=== PATIENT | male | born 1955 | race Caucasian/White ===

== ENCOUNTER 2020-07-29 05:55 | Day surgery (SDC) | payer BC, OTHER ==
[2020-07-27 12:33] VITALS: BMI 26.0
[2020-07-29] MEDS ORDERED: Heparin 10,000 UNITS/ 10 ML VIAL ONE (07:16)
[2020-07-29] MEDS ORDERED: Midazolam HCl 2 mg/2 ml Vial ONE (08:13)
[2020-07-29] MEDS ORDERED: Fentanyl 100 MCG/2 ML VIAL ONE (08:13)
[2020-07-29] MEDS ORDERED: Protamine Sulfate 50 MG/5 ML VIAL ONE (08:32)
[2020-07-29] MEDS ORDERED: Iopamidol 370 76% 50 ML VIAL FS ONE (11:16)
[2020-07-29] MEDS ORDERED: Iopamidol 370 76% 100 ML VIAL ONE (11:16)
== END 2020-07-29 15:45 | disposition home or self-care (01) ==
LOC: CCL 05:55
PROVIDERS: ATTEND Internal Medicine Cardiovascular Disease
PROC: B2111ZZ Fluoroscopy of Multiple Coronary Arteries using Low Osmolar Contrast (ICD-10-PCS; principal; 2020-07-29)
PROC: 4A023N7 Measurement of Cardiac Sampling and Pressure, Left Heart, Percutaneous Approach (ICD-10-PCS; principal; 2020-07-29)
DX: I25.10 Atherosclerotic heart disease of native coronary artery without angina pectoris (principal); Z79.82 Long term (current) use of aspirin; Z79.899 Other long term (current) drug therapy
CPT/HCPCS: 85347; 93458; 99152; 99153; J1644; J2250; J2720; J3010; Q9967

== ENCOUNTER 2022-12-03 10:21 | Outpatient (CLI) | payer MEDICARE, BC ==
[2022-12-03 12:51] LABS: #Basophils 0.1 10x3/uL (0.0-0.2); #Monocytes 0.4 10x3/uL (0.0-1.1); #Neutrophils 2.7 10x3/uL (1.5-8.4); %Basophils 1.2 % (0.0-2.0); %Eosinophils 0.8 % (0.0-6.0); %Lymphocytes 33.1 % (18.0-47.0); %Monocytes 8.9 % (0.0-10.0); Hemoglobin 14.8 g/dL (13.5-17.5); Mean Corpuscular HGB CONC 33.7 g/dL (32.0-36.0); Mean Corpuscular Hemoglobin 30.8 pg (27.0-33.0); Mean Corpuscular Volume 91.5 fl (81.2-95.1); Platelet Count 220 10x3/uL (150-450); RBC Distribution Width 12.9 % (11.5-14.5); White Blood Cell (WBC) Count 4.8 10x3/uL (3.5-10.5)
[2022-12-03 13:11] LABS: Anion Gap 14 mmol/L (10-20); BUN (Urea Nitrogen) 14 mg/dL (8.4-25.7); Calc. Creatinine Clearance 0 mL/min (70-130); Calcium 9.9 mg/dL (7.8-10.44); Carbon Dioxide 25 mmol/L (23-31); Chloride 106 mmol/L (98-107); Estimated GFR 98; Glucose 91 mg/dL (80-115); Potassium 5.4 mmol/L (3.5-5.1); Sodium 140 mmol/L (136-145)
[2022-12-03 13:23] LABS: INR-International Normal Ratio 0.9; Prothrombin Time 10.2 sec (9.5-12.1)
== END 2022-12-03 10:22 | disposition home or self-care (01) ==
LOC: LABBT 10:21
PROVIDERS: ATTEND Orthopaedic Surgery
DX: Z01.818 Encounter for other preprocedural examination (principal); M16.11 Unilateral primary osteoarthritis, right hip
CPT/HCPCS: 80048; 85025; 85610; 87081; 93005; 93010

== ENCOUNTER 2022-12-17 06:06 | Inpatient (IN) | payer MEDICARE, BC ==
[2022-12-14 10:11] VITALS: BMI 25.1
[2022-12-17] MEDS ORDERED: Vancomycin 1 GM/200 ML (FROZEN) BAG ONE (07:42)
[2022-12-17] MEDS ORDERED: Tranexamic Acid 1,000 MG/10 ML VIAL ONE (07:42)
[2022-12-17] MEDS ORDERED: Sodium Chloride 0.9% 100 ML ONE ×2 (07:42→09:07)
[2022-12-17] MEDS ORDERED: Fentanyl 100 MCG/2 ML VIAL ONE ×3 (07:49→18:49)
[2022-12-17] MEDS ORDERED: Midazolam HCl 2 mg/2 ml Vial ONE (07:49)
[2022-12-17] MEDS ORDERED: Bupivacaine PF 0.5% 30 ML VIAL ONE (07:49)
[2022-12-17 08:13] LABS: Potassium 4.2 mmol/L (3.5-5.1)
[2022-12-17 08:25] LABS: SARS-CoV-2 NAA Rapid Test Not Detected (NotDetected)
[2022-12-17] MEDS ORDERED: CEFAZOLIN 2 GM VIAL ONE (09:07)
[2022-12-17] MEDS ORDERED: SUGAMMADEX SODIUM 200 MG/2 ML VIAL ONE (09:34)
[2022-12-17] MEDS ORDERED: Fentanyl 250 MCG/5 ML VIAL ONE (09:34)
[2022-12-17] MEDS ORDERED: Bupivacaine HCl 0.5%/Epinephrine 1:200,000/PF 30 ml Vial ONE (09:45)
[2022-12-17] MEDS ORDERED: Dexamethasone 20 MG/5 ML VIAL ONE (09:45)
[2022-12-17] MEDS ORDERED: Ondansetron PF 4 MG/2 ML Vial ONE (09:45)
[2022-12-17] MEDS ORDERED: Acetaminophen 325 MG TAB PO PRN (12:39)
[2022-12-17] MEDS ORDERED: Zolpidem Tartrate 5 MG TAB PO PRN (12:39)
[2022-12-17] MEDS ORDERED: Ondansetron PF 4 MG/2 ML Vial IVP PRN (12:39)
[2022-12-17] MEDS ORDERED: Promethazine HCl 25 MG/ML VIAL IM PRN (12:39)
[2022-12-17] MEDS ORDERED: diphenhydrAMINE 25 MG CAP PO PRN (12:39)
[2022-12-17] MEDS ORDERED: traMADol HCl 50 MG TAB PO PRN (12:39)
[2022-12-17] MEDS ORDERED: Vancomycin 1.5 GRAM/300 ML BAG 1.5 GM in Premix Bag 1 BAG IVPB SCH ×2 (14:00→21:00)
[2022-12-17] MEDS ORDERED: CEFAZOLIN 2 GM in Sodium Chloride 0.9% 100 ML IVPB SCH (18:00)
[2022-12-17] MEDS: HYDROcodone/Acetaminophen 10/325 mg Tablet PO PRN (20:18)
[2022-12-17] MEDS: Aspirin 81 mg Enteric Coated Tablet PO SCH (20:18)
[2022-12-17] MEDS: Fentanyl 100 MCG/2 ML VIAL SLOW IVP PRN ×2 (22:09→23:34)
[2022-12-18] MEDS ORDERED: CEFAZOLIN 2 GM in Sodium Chloride 0.9% 100 ML IVPB SCH (05:30)
[2022-12-18] MEDS: HYDROcodone/Acetaminophen 10/325 mg Tablet PO PRN ×2 (06:20→12:01)
[2022-12-18 06:26] LABS: Hemoglobin 13.1 g/dL (14.0-18.0); Mean Corpuscular HGB CONC 33.4 g/dL (32.0-36.0); Mean Corpuscular Hemoglobin 31.5 pg (27.0-31.0); Mean Corpuscular Volume 94.5 fl (78.0-98.0); Mean Platelet Volume 7.9 fL (7.4-10.4); Platelet Count 188 10x3/uL (130-400); RBC Distribution Width 11.8 % (11.5-14.5); Red Blood Cell (RBC) Count 4.15 mill/uL (4.70-6.10); White Blood Cell (WBC) Count 6.9 10x3/uL (4.8-10.8)
[2022-12-18] MEDS: Senokot S 8.6-50 MG TAB PO SCH ×2 (09:22→19:57)
[2022-12-18] MEDS: Multivitamin W/ Minerals 1 TAB PO SCH (09:22)
[2022-12-18] MEDS: Aspirin 81 mg Enteric Coated Tablet PO SCH ×2 (09:22→19:57)
[2022-12-18] MEDS: Ferrous Gluconate 324 MG TAB PO SCH ×2 (09:23→19:57)
[2022-12-19 08:07] VITALS: BP 107/64; TEMP 97.9
[2022-12-19] MEDS: Multivitamin W/ Minerals 1 TAB PO SCH (09:28)
[2022-12-19] MEDS: Senokot S 8.6-50 MG TAB PO SCH (09:28)
[2022-12-19] MEDS: Ferrous Gluconate 324 MG TAB PO SCH (09:28)
[2022-12-19] MEDS: Aspirin 81 mg Enteric Coated Tablet PO SCH (09:29)
== END 2022-12-19 12:15 | disposition home or self-care (01) | DRG 470 ==
LOC: SDC 06:06 → SJJU 19:26
PROVIDERS: ADMIT Orthopaedic Surgery; ATTEND Orthopaedic Surgery
PROC: 0SR9039 Replacement of Right Hip Joint with Ceramic Synthetic Substitute, Cemented, Open Approach (ICD-10-PCS; principal; 2022-12-17)
DX: M16.11 Unilateral primary osteoarthritis, right hip (principal); Z20.822 Contact with and (suspected) exposure to COVID-19; Z79.82 Long term (current) use of aspirin; Z79.899 Other long term (current) drug therapy
CPT/HCPCS: 36415; 84132; 85027; C1776; J1100; J2250; J2405; J3010; J3370; J3370-JW; J3490; S0020; U0002